=== PATIENT | female | born 1950 | race Caucasian/White ===

== ENCOUNTER 2025-02-23 21:16 | Emergency (ER) | payer MEDICARE, OTHER ==
[2025-02-23 21:34] VITALS: BP 152/49; PULSE 82
== END 2025-02-23 21:53 | disposition home or self-care (01) ==
LOC: EDBD → DL.ED 21:16 → MERGE 21:16 → DL.ED 21:53
DX: T16.1XXA Foreign body in right ear, initial encounter (principal)
CPT/HCPCS: 69200; 99282; 99282-25